=== PATIENT | female | born 1990 | race Caucasian/White ===

== ENCOUNTER 2019-04-19 15:37 | Emergency (ER) | payer MEDICAID, OTHER ==
[~2019-04-19] VITALS: Ht 167.6 cm; Wt 147.0 kg
[2019-04-19] MEDS ORDERED: IBUPROFEN 800 MG TABLET PO ONE (15:56)
[2019-04-19] MEDS ORDERED: DEXAMETHASONE 4 MG TABLET PO ONE (15:56)
--- NOTE | 2019-04-19 16:03 | NUR ---
ASSUMED CARE OF PT AT THIS TIME. PT TO IMAGING VIA [facility] AT THIS TIME.
[2019-04-19] MEDS ORDERED: DEXAMETHASONE 4 MG TABLET ONE (16:08)
[2019-04-19] MEDS ORDERED: IBUPROFEN 800 MG TABLET ONE (16:08)
[2019-04-19 16:19] LABS: RAPID INFLUENZA A Negative (Negative); RAPID INFLUENZA B Negative (Negative)
[2019-04-19 17:04] VITALS: BP 126/79
== END 2019-04-19 17:06 | disposition home or self-care (01) ==
LOC: ED 17:00
DX: J20.8 Acute bronchitis due to other specified organisms (principal); F17.200 Nicotine dependence, unspecified, uncomplicated; J10.1 Influenza due to other identified influenza virus with other respiratory manifestations; B34.9 Viral infection, unspecified
CPT/HCPCS: 71046; 87400; 99284

== ENCOUNTER 2019-06-15 11:31 | Emergency (ER) | payer MEDICAID ==
[~2019-06-15] VITALS: Ht 167.6 cm; Wt 153.0 kg
[2019-06-15] MEDS ORDERED: SODIUM CHLORIDE FLUSH 10ML SYR IVF ONE (12:00)
[2019-06-15 12:25] LABS: BASOPHILS # (AUTO) 0.05 x10^3/uL (0-0.1); BASOPHILS % (AUTO) 1 % (0-1); EOSINOPHILS # (AUTO) 0.19 x10^3/uL (0-0.4); EOSINOPHILS % (AUTO) 3 % (1-7); LYMPHOCYTES # (AUTO) 2.23 x10^3/uL (1-3.4); LYMPHOCYTES % (AUTO) 30 % (22-44); MD NO; MEAN CORPUSCULAR HEMOGLOBIN 30.2 pg (27.0-34.8); MEAN CORPUSCULAR HGB CONC 33.4 g/dL (32.4-35.8); MEAN CORPUSCULAR VOLUME 90.3 fL (80-100); MEAN PLATELET VOLUME 9.1 fL (7.4-10.4); MONOCYTES # (AUTO) 0.48 x10^3/uL (0.2-0.8); MONOCYTES % (AUTO) 6 % (2-9); NEUTROPHILS # (AUTO) 4.55 x10^3/uL (1.8-6.8); NEUTROPHILS % (AUTO) 61 % (42-75); PLATELET COUNT 272 x10^3/uL (130-400); RED BLOOD COUNT 4.78 x10^6/uL (3.82-5.3); RED CELL DISTRIBUTION WIDTH 13.7 % (9.6-15.2)
[2019-06-15 12:34] LABS: ALBUMIN 3.4 g/dL (3.4-5.0); ANION GAP 7 mmol/L (5-15); CALCIUM 8.5 mg/dL (8.5-10.1); CHLORIDE 107 mmol/L (98-107); CREATININE 0.72 mg/dL (0.55-1.02)
--- NOTE | 2019-06-15 12:52 | NUR ---
PT RESTING IN HOSPITAL BED. NO DISTRESS NOTED. NO NEEDS AT THIS TIME
--- NOTE | 2019-06-15 13:24 | NUR ---
PT IN CT
[2019-06-15] MEDS ORDERED: OMNIPAQUE 350 MG/ML, 100ML BOTTLE ONE (13:35)
[2019-06-15 13:41] VITALS: BP 168/98
--- NOTE | 2019-06-15 13:42 | NUR ---
PT IN BED. NO NEEDS AT THIS TIME. AWAITING CT RESULTS
== END 2019-06-15 13:58 | disposition home or self-care (01) ==
LOC: ED 13:48
DX: K11.20 Sialoadenitis, unspecified (principal); H92.01 Otalgia, right ear; F17.200 Nicotine dependence, unspecified, uncomplicated
CPT/HCPCS: 36415; 70491; 80048; 82040; 85025; 99284; Q9967

== ENCOUNTER 2020-01-17 16:58 | Emergency (ER) | payer MEDICAID ==
[~2020-01-17] VITALS: Ht 167.6 cm; Wt 143.0 kg
--- NOTE | 2020-01-17 18:04 | NUR ---
COMPENSATION COORDINATOR: PT RECHECKED D/T EPISODE OF NAUSEA. NEW VITALS CHARTED. EKG PERFORMED.
--- NOTE | 2020-01-17 18:10 | NUR ---
TENANT RELATIONS COORDINATOR: PT TO ROOM FROM LOBBY
[2020-01-17] MEDS ORDERED: BICILLIN-LA 1,200,000 UNITS/2 ML IM ONE (19:30)
[2020-01-17] MEDS ORDERED: DEXAMETHASONE 4 MG/ML, 1ML PO ONE (19:30)
[2020-01-17] MEDS ORDERED: KETOROLAC 30 MG/1 ML IM ONE (19:30)
[2020-01-17] MEDS ORDERED: DEXAMETHASONE 4 MG/ML, 1ML ONE (19:36)
[2020-01-17] MEDS ORDERED: KETOROLAC 30 MG/1 ML ONE (19:36)
[2020-01-17 21:04] VITALS: BP 141/85
== END 2020-01-17 21:06 | disposition home or self-care (01) ==
LOC: ED 19:30
DX: J02.0 Streptococcal pharyngitis (principal); R00.0 Tachycardia, unspecified; F17.200 Nicotine dependence, unspecified, uncomplicated
CPT/HCPCS: 93005; 96372; 99284; J0561; J1100; J1885